=== PATIENT | male | born 1995 | race Caucasian/White ===

== ENCOUNTER → 2023-06-16 | Outpatient (CLI) | payer BC ==
--- NOTE | 2023-06-16 11:34 | XR ---
EXAMINATION TYPE: XR KUB DATE OF EXAM: 06/16/2023 COMPARISON: 10/24/2019 INDICATION: Calculus of the kidney TECHNIQUE: Single view abdomen supine view FINDINGS: There is a normal bowel gas pattern. Fecal debris is within the transverse colon. Psoas margins are normal. No organomegaly is present. There is a 1.1 cm calcification in the mid right kidney. There is a 1.2 cm calcification at the infer ior pole left kidney. IMPRESSION: 1. Bilateral renal stones.
== END | disposition home or self-care (01) ==
LOC: RADXRMAIN 11:03
PROVIDERS: ATTEND Urology
DX: N20.0 Calculus of kidney (principal)
CPT/HCPCS: 74018

== ENCOUNTER → 2024-07-26 | Outpatient (CLI) | payer BC ==
--- NOTE | 2024-07-26 17:38 | XR ---
EXAMINATION TYPE: XR KUB DATE OF EXAM: 07/26/2024 5:18 PM COMPARISON: 06/16/2023r CLINICAL INDICATION: Male, 28 years old with history of Z87.442 PERSONAL HISTORY OF URINARY CALCULI; [facility] TECHNIQUE: One radiographic view of the abdomen was obtained. FINDINGS: The bowel gas pattern is nonspecific without dilated loops of small or large bowel. . Fecal material and gas are demonstrated throughout the colon and rectum. There is no evidence for organome arsen or pneumoperitoneum. The osseous structures are intact. Bilateral renal calculi measuring up t o 15 mm on the right and 15 mm on the left. IMPRESSION: 1. Bilateral renal calculi. 2. Nonspecific bowel gas pattern without radiographic evidence for acute process. [facility], , 07/26/2024 5:36 PM
== END | disposition home or self-care (01) ==
LOC: RADXRMAIN 17:03
PROVIDERS: ATTEND Family Medicine
DX: Z87.442 Personal history of urinary calculi (principal); N20.0 Calculus of kidney
CPT/HCPCS: 74018

== ENCOUNTER → 2024-11-04 | Outpatient (CLI) | payer BC ==
--- NOTE | 2024-11-04 12:41 | CT ---
EXAMINATION TYPE: CT abdomen pelvis w con DATE OF EXAM: 11/04/2024 COMPARISON: NONE CLINICAL INDICATION: Male, 28 years old with history of R10.84 ABN ABD PAIN N20.1 CALCULUS OF URETER, Abn abd pain, calculus of ureter, TECHNIQUE: CT scan of the abdomen and pelvis is performed with IV Contrast, patient injected with 100 ml mL of I sovue 300., (none if empty) Oral contrast used: with Oral Contrast (none if empty) CT DLP: 978 mGycm, Automated exposure control for dose reduction was used. FINDINGS: LUNG BASES: No significant abnormality is appreciated. LIVER/GB: No significant abnormality is appreciated. PANCREAS: No significant abnormality is seen. SPLEEN: No significant abnormality is seen. ADRENALS: No significant abnormality is seen. KIDNEYS: Symmetric corticomedullary uptake and excretion. No left-sided hydronephrosis. There are mul tiple lower pole left renal calculi measuring up to 15 mm lower pole calyx coronal image 56. There ar e several right renal calculi measuring up to 10 mm in size. There is a 14 mm calculus in the central right renal pelvis coronal image 47. There is moderate to severe right-sided hydronephrosis and mild to moderate proximal to mid right hydroureter. No definitive distal right ureter calculus. No calcul us in the bladder. BOWEL: Contrast reaches the cecum. No abnormal small or large bowel dilatation PROSTATE/SEMINAL VESICLES: No gross abnormality seen. LYMPH NODES: No greater than 1cm abdominal or pelvic lymph nodes are appreciated. OSSEOUS STRUCTURES: Moderate disc space narrowing at lumbosacral junction. Mild to moderate disc spac e narrowing at L2-L3 level. OTHER: No significant additional abnormality is seen. IMPRESSION: Bilateral nephrolithiasis. Moderate to severe right-sided hydronephrosis without delayed excretion. There is a central 14 mm right renal pelvic calculus. There is mild to moderate proximal t o mid hydroureter and mucosal enhancement. Infectious process cannot be excluded. [facility], , 11/04/2024 12:39 PM
== END | disposition home or self-care (01) ==
LOC: RADCTMAIN 10:21
PROVIDERS: ATTEND Family Medicine
DX: N13.2 Hydronephrosis with renal and ureteral calculous obstruction (principal); N13.4 Hydroureter
CPT/HCPCS: 74177; Q9967